=== PATIENT | female | born 1975 | race Two or more races ===

== ENCOUNTER 2022-09-13 01:01 | Emergency (ER) | payer OTHER ==
[~2022-09-13] VITALS: Ht 165.1 cm; Wt 100.0 kg
[2022-09-13 01:17] VITALS: BP 106/61
[2022-09-13] MEDS ORDERED: SODIUM CHLORIDE 0.9% 1,000 ML IVB ONE (01:45)
[2022-09-13] MEDS ORDERED: LORazepam 2MG/ML-1ML VIAL IV ONE (01:45)
== END 2022-09-13 02:01 | disposition left against medical advice (07) ==
LOC: EDBD 01:01 → ER 01:06 → EDBD 01:06 → ER 01:39
DX: F10.129 Alcohol abuse with intoxication, unspecified (principal); R41.82 Altered mental status, unspecified; F41.9 Anxiety disorder, unspecified; Y90.9 Presence of alcohol in blood, level not specified